=== PATIENT | female | born 1990 | race Caucasian/White ===

== ENCOUNTER 2018-01-12 21:24 | Emergency (ER) | payer MEDICAID ==
[~2018-01-12] VITALS: Ht 154.9 cm; Wt 53.4 kg
[~2018-01-12 21:24] MED LIST: BUPR1FIL3 SL; NITR-60 PO; ZOF4T PO
[2018-01-13 01:31] VITALS: BP 135/72
== END 2018-01-13 01:35 | disposition home or self-care (01) ==
LOC: ER 21:25
DX: F11.20 Opioid dependence, uncomplicated (principal); F15.90 Other stimulant use, unspecified, uncomplicated; F12.90 Cannabis use, unspecified, uncomplicated
CPT/HCPCS: 99281